=== PATIENT | male | born 1950 | race Caucasian/White ===

== ENCOUNTER → 2022-10-14 14:37 | Outpatient (BNVA) | payer MEDICARE, MEDICAID, SELFPAY | PROVIDERS: PCP Family Medicine; Referring Provider Family Medicine; Visit Provider Surgery | DX: K40.90 Unilateral inguinal hernia, without obstruction or gangrene, not specified as recurrent (principal) | CPT/HCPCS: 99204 ==

== ENCOUNTER 2022-11-01 13:55 | Outpatient (CLI) | payer MEDICARE, MEDICAID, SELFPAY ==
[2022-11-01 14:38] LABS: Basophils # 0.1 10^3/uL (0.0-0.1); Basophils % 0.6 %; Eosinophils # 0.3 10^3/uL (0.0-0.8); Eosinophils % 3.7 %; Hematocrit 39.6 % (37-53); Lymphocytes # 1.7 10^3/uL (0.8-4.8); Lymphocytes % 20.8 %; Mean Corpuscular HGB Conc 33.6 g/dL (30-55); Mean Corpuscular Hemoglobin 33.3 pg (27-33); Mean Platelet Volume 11.4 fL (7.4-10.4); Monocytes # 0.7 10^3/uL (0.2-0.9); Monocytes % 8.2 %; Neutrophils # 5.43 10^3/uL (1.8-7.7); Neutrophils % 66.5 %; Nucleated Red Blood Cells % 0 %; Platelet Count 162 10^3/cmm (157-399); Red Cell Distribution Width 12.6 % (12.1-15.1); White Blood Count 8.17 10^3/uL (3.29-11.43)
[2022-11-01 15:00] LABS: Alanine Aminotransferase 18 U/L (0-41); Albumin Level 4.2 g/dL (3.5-5.2); Alkaline Phosphatase 77 U/L (40-130); Anion Gap 9.9 (5-19); Aspartate Amino Transferase 20 U/L (0-40); Blood Urea Nitrogen 22 mg/dL (8-23); Carbon Dioxide 30 mmol/L (22-29); Chloride 104 mmol/L (98-107); Globulin 2.3 g/dL (1.3-4.6); Glomerular Filtration Rate 73.9 mL/min (90-130); Glucose 96 mg/dL (65-115); Osmolality Calculated 291 mOsm/kg (285-295); Potassium 4.9 mmol/L (3.5-5.1); Sodium 139 mmol/L (136-145); Total Bilirubin 0.5 mg/dL (0.15-1.2); Total Protein 6.5 g/dL (6.6-8.7)
== END 2022-11-01 13:56 | disposition home or self-care (01) ==
PROVIDERS: PCP Family Medicine; Visit Provider Surgery
DX: Z01.812 Encounter for preprocedural laboratory examination (principal); Z01.818 Encounter for other preprocedural examination
CPT/HCPCS: 36415; 80053; 85025; 93005

== ENCOUNTER 2022-11-10 06:15 | Day surgery (SDC) | payer MEDICARE, MEDICAID, SELFPAY ==
[2022-11-10] VITALS (8 sets, daily range): BP systolic 100–135; BP diastolic 58–77; PULSE 71–92; RESP 17–19; TEMP 36.1–36.6; O2SAT 92–96; BMI 17.2
--- NOTE | 2022-11-10 06:28 | P.HPUD_ITS ---
Surgery/Procedure H&P Update DATE OF PROCEDURE: November 10, 2022 DATE H&P PERFORMED: 10/14/22 H&P UPDATE INFORMATION: I have reviewed H&P completed within last 30 days, I have examined patient prior to procedure, No changes to prior documentation and [place] [facility] [place] indicated PLANNED PROCEDURE: Operation Date: 11/10/22 08:25 Proposed Procedures p [id number] lap poss left inguinal hernia with mesh K40.90(Left) - Justen Brown MD
[2022-11-10] MEDS: sodium chloride 0.9% 1,000 ML 30 ML IV (07:42)
--- NOTE | 2022-11-10 07:57 | ANES.PREANE2 ---
Pre-Anesthetic Assessment Height/Weight: Height 1.78 m Weight 54.431 kg Temp Pulse Resp BP Pulse Ox O2 Del Method 97.3 F L 71 18 128/77 96 Room Air 11/10/22 07:30 11/10/22 07:30 11/10/22 07:30 11/10/22 07:30 11/10/22 07:30 11/10/22 07:39 Preop Diagnosis: Left inguinal hernia Operation Date: 11/10/22 08:25 Proposed Procedures p [id number] lap poss left inguinal hernia with mesh K40.90(Left) - Justen Brown MD Familial anesthetic complications: None Was Beta Jordana taken within 24 hours: N/A Was Clonidine taken within 24 hours: N/A Last intake: Intake Last Liquid Date 11/09/22 Last Liquid Time 21:00 Last Solid Date 11/09/22 Last Solid Time 21:00 Social Tobacco and No alcohol 1; marijuana daily pack(s) per day Exam alert, oriented x 3, clear to auscultation bilaterally and regular rate & rhythm Airway Submandibular: within normal limits Cervical ROM: within normal limits Mallampati: Class II Dentition: loose Comments: Comments: Several missing,poor dentition History/ROS No significant history except as noted and No significant complaints Pulmonary Chronic Obstructive Pulmonary Disease and Exertional Dyspnea CV/HEM Arrythmia and Coronary Artery Disease None reported Hepatic None reported GI Gastroesophageal Reflux Disease (None this morning; food related) Metabolic None reported Musc/skel Osteoarthritis/DJD and Weakness Neuropsych Anxiety, Depression and Neuropathy Anesthetic Plan ASA status: 3 Anesthesia: Anesthesia Evaluation Risk of > 500 ml blood loss (7ml/kg in children): No Medications/Allergies Home Medications Medication Instructions Recorded Confirmed Last Taken Type diazepam 10 mg tablet 10 mg PO QPM 10/14/22 11/09/22 11/09/22 History escitalopram oxalate 10 mg tablet 10 mg PO QPM 10/14/22 11/09/22 11/09/22 History gabapentin 600 mg tablet 600 mg PO QPM 10/14/22 11/09/22 11/09/22 History Allergies Allergy/AdvReac Type Severity Reaction Status Date / Time No Known Allergies Allergy Unverified 11/10/22 07:22 Current Medications Generic Name Dose Route Start Last Admin Trade Name Freq PRN Reason Stop Dose Admin Sodium Chloride 1,000 mls @ 30 mls/hr 10/04/23 07:30 11/10/22 07:42 Sodium Chloride 0.9% IV 11/11/22 07:29 30 mls/hr .Q24H IGNACIA Administration Data Anesthesia Cardiac Studies: No Data to Display
[2022-11-10] MEDS: ceFAZolin 2,000 MG in sodium chloride 0.9% (plus) 50 ML 100 MG IV (08:48)
[2022-11-10] MEDS: lidocaine-epi 2% 20 mL INJ INJECTION (09:25)
[2022-11-10] MEDS: BUPivacaine 0.25% INJ 10 mL INJECTION (09:26)
--- NOTE | 2022-11-10 10:27 | PM.OP ---
Operative Report Date of procedure: November 10, 2022 Pre-op diagnosis: Left inguinal hernia Post-op diagnosis: Same Procedure done: Laparoscopic left inguinal hernia repair with mesh Implants: Large left-sided Bard 3D max mesh Surgeon: Justen Brown MD Can Closing Machine Operator: [facility] OR Staff Estimated blood loss: 5 Complications: hypercapnia and subcutaneous emphysema noted during the procedure, his ablation was a stopped until ventilation was deemed stable by anesthesia team. Findings: Left inguinal hernia without direct and indirect component Brief History: This is a 72-year-old male who presents to my clinic for evaluation of a left inguinal hernia. Laparoscopic repair was indicated, after discussion of all the risk and benefits the patient was taken to the OR for left inguinal hernia repair with mesh. Procedure: Patient was brought into the OR. Placed in the supine position. General esthesia was given. The abdomen was prepped and draped in the usual sterile fashion. Timeout was conducted. 1.5 cm incision was made in the infraumbilical position, the incision was deepened until the rectus sheath was seen. The left-sided rectus sheath was then opened with electrocautery, muscle was retractor laterally and the rectus space was accessed. A balloon insufflator was then inserted and guided towards the symphysis pubis. Under direct visualization the balloon was inflated creating the preperitoneal space. Balloon was then removed and replaced by a 10 mm trocar, additional 5 mm trocars were placed in the suprapubic and infraumbilical positions. Blunt dissection was done the peritoneum and opening the preperitoneal space on the left groin the dissection was carried lateral to the lateral muscles of the abdominal wall. The spermatic cord structures and hernia sac was then identified going into the internal ring. Careful dissection was taken, the hernia sac was reduced and from the cord structures 4 cm below the level of the internal ring. Vas deferens and testicular vessels were preserved. Once dissection was completed and we were about to place mesh when we were informed by the anesthesia team that the patient was noted to have a high end-tidal CO2 and some subcutaneous crepitus which indicated possible subcutaneous emphysema due to the CO2. At this point we stopped the insufflation, after subsequent intervention by the anesthesia team it was him okay to continue placing the mesh we resolve insufflation placed a mesh with tacked the mesh with 1 absorbable tacks to the symphysis pubis and we made sure to cover the direct anterior directed spaces and extend the mesh laterally, the space was then desufflated under direct visualization, trocars were removed. The anterior rectus sheath was closed with a 0 Vicryl on a UR 6 needle. Once were closed with #3-0 Vicryl for the subcutaneous tissue and 4 Monocryl for the skin, Dermabond was applied. At the end of the procedure all counts were correct, the patient was extubated, transferred to PACU in stable condition.
[2022-11-10] MEDS: meloxicam 7.5 mg tablet PO (11:14)
--- NOTE | 2022-11-10 11:50 | ANE.PACU2 ---
Inpatient post-anesthesia follow up: Airway intact: Yes Vital signs: Temperature 98 F Pulse Rate 76 Respiratory Rate 18 Blood Pressure 100/58 Pulse Oximetry 93 Oxygen Delivery Me thod Room Air Oxygen Flow Rate Fraction of Inspir ed Oxygen Hydration adequate: Yes Nausea and vomiting: No Pain level: 1 Mental status: Baseline
== END 2022-11-10 11:48 | disposition home or self-care (01) ==
PROVIDERS: PCP Family Medicine; Visit Provider Surgery
PROC: (CPT 49650; principal; 2022-11-10 08:15)
DX: K40.90 Unilateral inguinal hernia, without obstruction or gangrene, not specified as recurrent (principal); J44.9 Chronic obstructive pulmonary disease, unspecified; I25.10 Atherosclerotic heart disease of native coronary artery without angina pectoris; K21.9 Gastro-esophageal reflux disease without esophagitis
CPT/HCPCS: 49650; 51702; C1781; J0131; J0690; J1100; J2405; J2704; J2710; J3010; J3490; J7030